=== PATIENT | male | born 1970 | race Caucasian/White ===

== ENCOUNTER 2017-07-06 15:41 | Emergency (ER) | payer OTHER ==
[~2017-07-06] VITALS: Ht 175.3 cm; Wt 82.0 kg
[2017-07-06 15:52] VITALS: BP 108/65; PULSE 63; TEMP 98.1; O2SAT 98
[2017-07-06 16:00] VITALS: BP 127/75; PULSE 69; RESP 16; O2SAT 100
--- NOTE | 2017-07-06 16:01 | PD ---
HPI Chief Complaint: Medical Clearance Time Seen by Provider: 15:55 Travel History International Travel<30 days: No Contact w/Intl Traveler<30days: No History of Present Illness HPI 46 YO M presents to the ED under arrest for medical clearance. Return to the arresting officer the patient was very anxious, constantly in motion when he was first encountered. He was found to have a warrant, placed under arrest. En route to the long term he began to complain of shortness of breath. On presentation the patient complains of "I don't have any energy." He is constantly in motion while on the bed. He states that he had an IV drug user, last used heroin yesterday evening. Denies any illicit drug or alcohol use today. He denies chronic health problems. He states that he is currently homeless. [facility] Social History Tobacco Use: Yes Allergies-Medications (Allergen,Severity, Reaction): Coded Allergies: No Known Allergies (Unverified , 07/06/17) Reported Meds & Prescriptions Reported Meds & Active Scripts Active No Active Prescriptions or Reported Medications Review of Systems Except as stated in HPI: all other systems reviewed are Neg Physical Exam Narrative GENERAL: Well-nourished, well-developed white male in no acute distress. SKIN: Focused skin assessment warm/dry. Injection sites in the right antecubital space without signs of infection. HEAD: Normocephalic. EYES: No scleral icterus. No injection or drainage. PERRLA. Pupils 4-5 mm bilaterally. EOMI. NECK: Supple, trachea midline. No JVD or lymphadenopathy. CARDIOVASCULAR: Regular rate and rhythm without murmurs, gallops, or rubs. 2+ DP and radial pulses bilaterally. RESPIRATORY: Breath sounds clear and equal bilaterally. No accessory muscle use. GASTROINTESTINAL: Abdomen soft, nondistended, tender in the left upper quadrant. MUSCULOSKELETAL: No cyanosis, or edema. NEUROLOGICAL: Awake and alert. Cranial nerves II through XII intact. Motor and sensory grossly within normal limits. 5/5 muscle strength in all muscle groups. Normal speech. BACK: Nontender without obvious deformity. No CVA tenderness. Data Data Last Documented VS Vital Signs Date Time Temp Pulse Resp B/P Pulse Ox O2 Delivery O2 Flow Rate FiO2 07/06/17 16:00 69 16 127/75 100 07/06/17 15:52 98.1 Orders Complete Blood Count With Diff (07/06/17 16:01) Comprehensive Metabolic Panel (07/06/17 16:01) Labs Laboratory Tests Test 07/06/17 17:00 White Blood Count 13.9 TH/MM3 Red Blood Count 4.95 MIL/MM3 Hemoglobin 13.9 GM/DL Hematocrit 42.7 % Mean Corpuscular Volume 86.4 FL Mean Corpuscular Hemoglobin 28.1 PG Mean Corpuscular Hemoglobin 32.6 % Concent Red Cell Distribution Width 13.7 % Platelet Count 324 TH/MM3 Mean Platelet Volume 8.0 FL Neutrophils (%) (Auto) 71.6 % Lymphocytes (%) (Auto) 21.9 % Monocytes (%) (Auto) 3.8 % Eosinophils (%) (Auto) 0.2 % Basophils (%) (Auto) 2.5 % Neutrophils # (Auto) 10.0 TH/MM3 Lymphocytes # (Auto) 3.1 TH/MM3 Monocytes # (Auto) 0.5 TH/MM3 Eosinophils # (Auto) 0.0 TH/MM3 Basophils # (Auto) 0.3 TH/MM3 CBC Comment AUTO DIFF Sodium Level 140 MEQ/L Potassium Level 4.5 MEQ/L Chloride Level 111 MEQ/L Carbon Dioxide Level 22.9 MEQ/L Anion Gap 6 MEQ/L Blood Urea Nitrogen 15 MG/DL Creatinine 1.01 MG/DL Estimat Glomerular Filtration 79 ML/MIN Rate Random Glucose 109 MG/DL Calcium Level 8.7 MG/DL Total Bilirubin 0.7 MG/DL Aspartate Amino Transf 64 U/L (AST/SGOT) Alanine Aminotransferase 130 U/L (ALT/SGPT) Alkaline Phosphatase 68 U/L Total Protein 8.2 GM/DL Albumin 3.2 GM/DL [facility] Medical Decision Making Medical Screen Exam Complete: Yes Emergency Medical Condition: Yes Differential Diagnosis substance intoxication versus malingering versus electrolyte abnormality versus other Narrative Course 46 YO M presents to the ED for medical clearance for incarceration. According to the arresting officer the patient was very anxious, constantly in motion when he was first encountered. He was found to have a warrant, placed under arrest. En route to the long term he began to complain of shortness of breath. On presentation the patient complains of "I don't have any energy." He is constantly in motion while on the bed. He states that he had an IV drug user, last used heroin yesterday evening. Denies any illicit drug or alcohol use today. Vitals reviewed. Physical exam is unremarkable save that the patient is constantly in motion. Lung sounds are clear bilaterally. No symptoms until on the way to long term, I suspect this is malingering. Mild elevation of white count which is suspect is a stress reaction. 2:1 elevation of AST and ALT. Lab work otherwise unremarkable. The patient is medically cleared and discharged into the custody of law enforcement. Diagnosis Primary Impression: Medical clearance for incarceration Referrals: [facility] (Out patient) Additional Instructions: Seek outpatient treatment for your substance abuse. Return to the ED for any urgent or emergent medical condition. Scripts No Active Prescriptions or Reported Meds Disposition: [address] LAW ENFORCEMNT Condition: Stable Katelin Rivera Jul 06, 2017 16:01
[2017-07-06 17:36] LABS: BASOPHIL # 0.3 TH/MM3 (0-0.2); BASOPHIL % 2.5 % (0.0-2.0); EOSINOPHIL % 0.2 % (0.0-4.0); HEMATOCRIT 42.7 % (39.0-51.0); LYMPH % 21.9 % (9.0-44.0); LYMPHOCYTE # 3.1 TH/MM3 (1.0-4.8); MEAN CELL VOLUME 86.4 FL (80.0-100.0); MEAN CORPUSCULAR HEMOGLOBIN 28.1 PG (27.0-34.0); MEAN CORPUSCULAR HGB CONC 32.6 % (32.0-36.0); MONO % 3.8 % (0.0-8.0); NEUT % 71.6 % (16.0-70.0); PLATELET COUNT 324 TH/MM3 (150-450); RED BLOOD COUNT 4.95 MIL/MM3 (4.50-5.90); RED CELL DISTRIBUTION WIDTH 13.7 % (11.6-17.2); WHITE BLOOD COUNT 13.9 TH/MM3 (4.0-11.0)
[2017-07-06 17:46] LABS: HEMO FLAGS AUTO DIFF
[2017-07-06 17:55] LABS: ALKALINE PHOSPHATASE 68 U/L (45-117); ALT (GPT) 130 U/L (12-78); ANION GAP 6 MEQ/L (5-15); AST (GOT) 64 U/L (15-37); BICARBONATE 22.9 MEQ/L (21.0-32.0); BLOOD UREA NITROGEN 15 MG/DL (7-18); CHLORIDE 111 MEQ/L (98-107); GLOMERULAR FILTRATION RATE 79 ML/MIN (>89); POTASSIUM 4.5 MEQ/L (3.5-5.1); SODIUM (NA) 140 MEQ/L (136-145); TOTAL BILIRUBIN ADULT 0.7 MG/DL (0.2-1.0)
[2017-07-06 18:38] VITALS: BP 140/70
[2017-07-06 19:18] LABS: SCAN/DIFF AUTO DIFF CONFIRMED
== END 2017-07-06 18:40 ==
LOC: NEPD 15:41
DX: R06.02 Shortness of breath (principal)
CPT/HCPCS: 80053; 85025; 99283